=== PATIENT | female | born 1990 | race African-American/Black ===

== ENCOUNTER 2021-10-17 11:43 | Emergency (ER) | payer BC ==
--- OUTSIDE RECORDS SUMMARY | 2021-10-17 11:46 | XMS REPORT | Continuity of Care Document ---
:1990 Author Organization [facility] t Address [address] [place] [address] Dr. Erazo [address] [place] [address] Care Team Providers Name Role Phone JEET_KIRAN_Marks_LM Attending Clinician Unavailable AZAR Attending Clinician Unavailable Nile LAWRENCE Attending Clinician Unavailable KIRA LUJAN Attending Clinician Unavailable JEET_KIRAN_Lorena_LM Admitting Clinician Unavailable AZAR Admitting Clinician Unavailable Payers Payer Name Policy Type Policy Number Effective Date Expiration Date S our[place] [id number] 2021 00:00:00 [place] [id number] 2020 00:00:00 Problems This patient has no known problems. Allergies, Adverse Reactions, Alerts This patient has no known allergies or adverse reactions. Medications This patient has no known medications. Procedures This patient has no known procedures. Encounters Start End Encounter Admission Attending Care Care Encounter Source Date/Time Date/Time Type Type Clinicians Facility Department ID 2021-09-30 2021-09-30 Outpatient GC_[facility]_M PRIV PRIV [id number] [facility] 01:37:00 01:37:00 arks_CARLOS [id number] Medica l 2021-09-28 2021-09-28 Outpatient GC_[facility]_M PRIV PRIV [id number] [facility] 10:01:00 10:01:00 austenks_LM [id number] Medica l 2021-09-27 2021-09-27 Outpatient GC_[facility]CBAY_M PRIV PRIV [id number] [facility] 12:24:00 12:24:00 dwayne_CARLOS [id number] Medica l 2021-06-17 2021-06-17 Outpatient JOSHUA DASILVA D [id number] [facility] - 06:29:26 08:07:31 [place], [place] jim Lozoya 2021-05-11 2021-05-11 Outpatient GC_[facility]_M PRIV PRIV [id number] [facility] 02:23:00 02:23:00 austenks_CARLOS [id number] Medica l 2021-05-11 2021-05-11 Outpatient GC_[facility]_M PRIV PRIV [id number] [facility] 02:23:00 02:23:00 dwayne_CARLOS [id number] Medica l 2020-11-15 2020-11-15 Emergency MELINDA, TORRES [facility] [id number] [place] 21:53:00 23:25:00 Health 2020-11-15 2020-11-15 Emergency [facility] [id number] [place] 22:05:15 22:12:28 Health 2019-03-03 2019-03-03 Emergency E [facility] [id number] [facility] 17:40:00 17:40:00 Results Test Description Test Time Test Comments Results Result Comments Source WET PREP 2017-12-25 11:33:00 Test Item Value Reference Range Interpretation Comme nts WBC WET PREP (BEAKER) (test code = 528) Few white blood cells seen CLUE CELLS (BEAKER) (test code = 526) Moderate clue cells seen YEAST WET PREP (BEAKER) (test code = 530) No budding yeast seen TRICH WET PREP (BEAKER) (test code = 531) No Trichomonas seen BACT WET PREP (BEAKER) (test code = 532) Many bacteria seen URINALYSIS W/ [id number] 10:55:00 Test Item Value Reference Range Interpretation Comments COLOR (BEAKER) (test Yellow code = 470) CLARITY (BEAKER) (test Clear code = 469) SPECIFIC GRAVITY UA 1.025 1.001-1.035 (BEAKER) (test code = 468) PH UA (BEAKER) (test 5.0 5.0-8.0 code = 467) PROTEIN UA (BEAKER) Negative Negative (test code = 464) GLUCOSE UA (BEAKER) Negative Negative (test code = 365) KETONES UA (BEAKER) Negative Negative (test code = 371) BILIRUBIN UA (BEAKER) Negative Negative (test code = 462) BLOOD UA (BEAKER) (test Small Negative A code = 461) NITRITE UA (BEAKER) Negative Negative (test code = 465) LEUKOCYTE ESTERASE UA Trace Negative A (BEAKER) (test code = 466) UROBILINOGEN UA (BEAKER) 0.2 mg/dL 0.2-1.0 (test code = 463) BACTERIA (BEAKER) (test Moderate code = 517) RBC UA-MANUAL (BEAKER) 5-10 /HPF (test code = 1659) WBC UA-MANUAL (BEAKER) 5-10 /HPF (test code = 1661) SQUAMOUS EPITHELIAL 5-10 /HPF Clue colleen ls seen, MANUAL (BEAKER) (test rare. code = 1663) SOURCE(BEAKER) (test code = 2795) SCREEN, [id number] 10:50:00 Test Item Value Reference Range Interpretation Comments TEST URINE (BEAKER) (test Negative code = 583)
[2021-10-17] MEDS ORDERED: ACETAMINOPHEN 500 MG TAB ONE (11:54)
[2021-10-17 12:09] LABS: Absolute Lymphocytes (CBC) 0.6 K/uL (0.7-4.9); Hematocrit 38.2 % (36.0-45.0); MPV 10.7 fL (7.6-11.3); RBC Red Blood Cell Count 4.28 M/uL (3.86-4.86)
[2021-10-17] MEDS ORDERED: NA CHLORIDE 0.9% 2,000 ML ONE (12:15)
[2021-10-17] MEDS ORDERED: MORPHINE 4 MG/ML SYR ONE (12:17)
[2021-10-17] MEDS ORDERED: ONDANSETRON 4 MG/2 ML VIAL ONE (12:17)
[2021-10-17 12:20] LABS: Protime INR 1.12
[2021-10-17 12:31] LABS: Albumin 3.5 g/dL (3.4-5.0); Bilirubin Direct 0.1 mg/dL (0-0.2); Bilirubin Total 0.4 mg/dL (0.2-1.0); Magnesium 1.6 mg/dL (1.8-2.4); Potassium 3.5 mmol/L (3.5-5.1); Protein, Total 7.3 g/dL (6.4-8.2); Troponin High Sensitivity 7.6 pg/mL (<58.9)
[2021-10-17 13:10] LABS: Urine Blood 2+ (Negative); Urine Glucose Negative (Negative); Urine Protein Trace (Negative); Urine Specific Gravity >=1.030 (1.005-1.030)
[2021-10-17 13:25] LABS: Urine Specific Gravity/Preg >1.030 (1.005-1.030)
[2021-10-17 13:30] LABS: SARS-COV-2 RT PCR NEGATIVE (NEGATIVE)
[2021-10-17 13:33] LABS: Urine Bacteria 20-50 /HPF (<20); Urine Mucus 3+ /HPF (NONE SEEN); Urine RBC <5 /HPF (NONE SEEN)
--- NOTE | 2021-10-17 13:33 | RAD REPORT ---
EXAM DESCRIPTION: CT - Abdomen Pelvis W Contrast - 10/17/2021 1:22 pm CLINICAL HISTORY: Abdominal pain COMPARISON: none. TECHNIQUE: Computed axial tomography of the abdomen pelvis was obtained. 100 cc Isovue-300 was admin istered intravenously. Oral contrast was not requested which limits evaluation of bowel. All CT scans are performed using dose optimization technique as appropriate and may include automated exposure control or mA/KV adjustment according to patient size. FINDINGS: The liver, spleen, pancreas, adrenal and kidneys appear unremarkable. There is no evidence of diverticulitis. Normal appendix 2.6 centimeter left ovarian cyst with a small amount free fluid IMPRESSION: 2.6 centimeter left ovarian cyst with a small amount free fluid .
[2021-10-17 13:41] LABS: Blood Morphology Comment NOT SEEN (NOT SEEN); Platelet Estimate ADEQ; White Blood Cell Scan OK (OK)
[2021-10-17] MEDS ORDERED: MAGNESIUM SULFATE 1 gm IVPB 1 GM/100 ML BAG IV ONE (13:49)
[2021-10-17] MEDS ORDERED: CEFTRIAXONE 1000 MG/VIAL ONE (13:49)
--- NOTE | 2021-10-17 14:06 | RAD REPORT ---
EXAM DESCRIPTION: Katherin Single View10/17/2021 12:31 pm CLINICAL HISTORY: Fever COMPARISON: none FINDINGS: The lungs appear clear of acute infiltrate. The heart is normal size IMPRESSION: No acute abnormalities displayed
[2021-10-17] MEDS ORDERED: KETOROLAC 30 MG/ML INJ ONE (14:30)
--- NOTE | 2021-10-17 14:42 | ER ---
Nurse's Notes [facility] Name: Pretty Summers Age: 30 yrs Sex: Female : 1990 Arrival Date: 10/17/2021 Time: 11:44 Bed 3 Private MD: Diagnosis: UTI/ Urinary tract infection, site not specified;Other and unspecified ovarian cysts Presentation: 10/17 12:02 Chief complaint: EMS states: Toned out for lower abdominal pain since this morning, pt jl7 HR 120s, temp 103.1, 20 to L AC, LR running wide open. Coronavirus screen: Vaccine status: Patient reports being unvaccinated. fever, Client presents with at least one sign or symptom that may indicate coronavirus-19. Standard/surgical mask placed on the client. Provider contacted for isolation considerations. Ebola Screen: No symptoms or risks identified at this time. Initial Sepsis Screen: Does the patient meet any 2 criteria? Temp <36.0*C (96.8*F)) or > 38.3*C (100.9*F). HR > 90 bpm. Yes Does the patient have a suspected source of infection? Yes: Acute abdominal pain. Risk Assessment: Do you want to hurt yourself or someone else? Patient reports no desire to harm self or others. Onset of symptoms was October 17, 2021. Care prior to arrival: Medication(s) given: Lactated Ringers IV initiated. 20 GA, in the left antecubital area. 12:02 Method Of Arrival: EMS: [facility] jl7 12:02 Acuity: YEIMY 2 jl7 Triage Assessment: 11:45 General: Appears in no apparent distress. uncomfortable, ill, Behavior is calm, jl7 cooperative, appropriate for age, quiet. Pain: Complains of pain in right lower quadrant and left lower quadrant Pain currently is 10 out of 10 on a pain scale. Pain began 4 hours ago. Is continuous. Neuro: Level of Consciousness is awake, alert, obeys commands, Oriented to person, place, time, situation. Cardiovascular: Patient's skin is warm and dry. Respiratory: Airway is patent Respiratory effort is even, unlabored, Respiratory pattern is regular, symmetrical. GI: Reports lower abdominal pain, Patient currently denies nausea, vomiting. : Denies burning with urination. Derm: Skin is dry, Skin is normal, Skin temperature is hot. 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 Flu vaccine is not up to date. - Social history:: Smoking status: Patient denies any tobacco usage or history of. Screenin:09 Abuse screen: Denies threats or abuse. Denies injuries from another. Nutritional jl7 screening: No deficits noted. Tuberculosis screening: No symptoms or risk factors identified. Fall Risk IV access (20 points). Total Whelan Fall Scale indicates No Risk (0-24 pts). Assessment: 13:28 Reassessment: Patient appears in no apparent distress at this time. No changes from ww previously documented assessment. Patient and/or family updated on plan of care and expected duration. Pain level reassessed. Patient states symptoms have not improved. assisted to bedside toilet, UA obtained. Patient transported to CT scan. . Vital Signs: 12:02 BP 129 / 77; Pulse 116; Resp 17 S; Temp 103(O); Pulse Ox 99% on R/A; Weight 90.72 kg jl7 (R); Height 5 ft. 4 in. (162.56 cm); Pain 10/10; 12:15 BP 120 / 74; Pulse 113; Resp 18; Pulse Ox 99% ; Pain 10/10; jl7 13:55 BP 116 / 75; Pulse 108; Resp 13; Temp 99.2; Pulse Ox 96% ; jl7 12:02 Body Mass Index 34.33 (90.72 kg, 162.56 cm) jl7 ED Course: 11:44 Patient arrived in ED. ds1 11:44 Darion Infante PA is PHCP. cp 11:44 Darion Kamara MD is Attending Physician. cp 11:45 Arm band placed on right wrist. jl7 12:06 Triage completed. jl7 12:09 Patient has correct armband on for positive identification. Placed in gown. Bed in low jl7 position. Call light in reach. Side rails up X2. monitoring tech on. Pulse ox on. NIBP on. 12:09 Initial lab(s) drawn, by ED staff, sent to lab. First set of blood cultures drawn by jl7 lab staff. Second set of blood cultures drawn by lab staff. EKG done, by ED staff, reviewed by Darion BENAVIDES COVID swab sent to lab. Flu and/or RSV swab sent to lab. Maintain EMS IV. Dressing intact. Good blood return noted. Site clean \T\ dry. Gauge \T\ site: 20 Left AC. Inserted saline lock: 20 gauge in right antecubital area, using aseptic technique. forearm, using aseptic technique. Blood collected. 12:21 Ruslan Bautista, RN is Primary Nurse. jl7 12:31 XRAY Chest (1 view) In Process Unspecified. EDMS 13:16 CT Abd/Pelvis - IV Contrast Only In Process Unspecified. EDMS 14:08 Urine --Ancillary (enter results) Sent. ww 15:36 No provider procedures requiring assistance completed. IV discontinued, intact, jl7 bleeding controlled, No redness/swelling at site. Pressure dressing applied. Administered Medications: 11:52 Drug: Tylenol 1000 mg Route: PO; jl7 14:00 Follow up: Response: No adverse reaction; Temperature is decreased jl7 12:18 Drug: morphine 4 mg Route: IVP; Site: left antecubital; jl7 12:45 Follow up: Response: No adverse reaction; Pain is decreased jl7 12:18 Drug: Zofran (Ondansetron) 4 mg Route: IVP; Site: left antecubital; jl7 15:38 Follow up: Response: No adverse reaction jl 12:20 Drug: NS 0.9% (30 ml/kg) 30 ml/kg Route: IV; Rate: bolus; Site: right forearm; jl7 15:00 Follow up: Response: No adverse reaction; IV Status: Completed infusion; IV Intake: [facility] 2700ml 13:40 Drug: Rocephin - (cefTRIAXone) 1 grams Route: IVPB; Infused Over: 30 mins; Site: right ww forearm; 13:45 Follow up: Response: No adverse reaction; IV Status: Completed infusion jl7 13:54 Drug: Magnesium Sulfate 1 grams Route: IVPB; Infused Over: 1 hrs; Site: right forearm; 14:54 Follow up: Response: No adverse reaction; IV Status: Completed infusion jl7 14:35 Drug: Ketorolac 30 mg Route: IVP; Site: right antecubital; ww 15:00 Follow up: Response: No adverse reaction; Pain is decreased jl7 Point of Care Testing: Urine : 14:08 hCG Reading: Negative; Control Reading: Positive; ww Intake: 15:00 IV: 2700ml; Total: 2700ml. jl7 Outcome: 14:41 Discharge ordered by . kassie 15:36 Discharged to home ambulatory. jl7 15:36 Condition: stable 15:36 Discharge instructions given to patient, Instructed on discharge instructions, follow up and referral plans. medication usage, Demonstrated understanding of instructions, follow-up care, medications, Prescriptions given X 3. 15:37 Patient left the ED. jl7 Signatures: Dispatcher [employer] EDHI Silvia Rush ds1 Darion Infante PA PA cp Leal, Jahala, RN RN jl7 Amelia Cary RN RN courtney
--- NOTE | 2021-10-17 14:43 | EDPHYS ---
Physician Documentation [facility] Name: Pretty Summers Age: 30 yrs Sex: Female : 1990 Arrival Date: 10/17/2021 Time: 11:44 Bed 3 Private MD: ED Physician Darion Kamara HPI: 10/17 11:55 This 30 yrs old Female presents to ER via EMS with complaints of Abdominal Pain. cp 11:55 The patient presents with abdominal pain in the lower abdomen. cp 11:55 Onset: The symptoms/episode began/occurred this morning. Associated signs and symptoms: cp Pertinent positives: fever, Pertinent negatives: chest pain, constipation, diarrhea, vomiting. The symptoms are described as constant. 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 Flu vaccine is not up to date. - Social history:: Smoking status: Patient denies any tobacco usage or history of. ROS: 12:00 Constitutional: Positive for fever. cp 12:00 Abdomen/GI: Positive for abdominal pain. cp Exam: 12:05 ECG was reviewed by the Attending Physician. cp 12:07 Constitutional: The patient appears in no acute distress, alert, awake, non-toxic, well cp developed, well nourished. 12:07 Head/Face: Normocephalic, atraumatic. cp 12:07 Eyes: Periorbital structures: appear normal, Conjunctiva: normal, no exudate, no injection, Sclera: no appreciated abnormality, Lids and lashes: appear normal, bilaterally. 12:07 ENT: External ear(s): are unremarkable, Nose: is normal, Mouth: Lips: moist, Oral mucosa: moist, Posterior pharynx: Airway: no evidence of obstruction, patent. 12:07 Neck: ROM/movement: is normal, is supple, without pain, no range of motions limitations. 12:07 Chest/axilla: Inspection: normal. 12:07 Cardiovascular: Rate: tachycardic, Rhythm: regular. 12:07 Respiratory: the patient does not display signs of respiratory distress, Respirations: normal, no use of accessory muscles, no retractions, labored breathing, is not present, Breath sounds: are clear throughout, no decreased breath sounds, no stridor, no wheezing. 12:07 Abdomen/GI: Inspection: abdomen appears normal, Bowel sounds: active, all quadrants, Palpation: soft, in all quadrants, mild abdominal tenderness, in the suprapubic area and left lower quadrant, rebound tenderness, is not appreciated, involuntary guarding, is not appreciated. 12:07 Back: ROM is normal. 12:07 Neuro: Orientation: to person, place \\T\\ time. Mentation: is normal, Motor: moves all fours, strength is normal, Sensation: is normal. Vital Signs: 12:02 BP 129 / 77; Pulse 116; Resp 17 S; Temp 103(O); Pulse Ox 99% on R/A; Weight 90.72 kg jl7 (R); Height 5 ft. 4 in. (162.56 cm); Pain 10/10; 12:15 BP 120 / 74; Pulse 113; Resp 18; Pulse Ox 99% ; Pain 10/10; jl7 13:55 BP 116 / 75; Pulse 108; Resp 13; Temp 99.2; Pulse Ox 96% ; jl7 12:02 Body Mass Index 34.33 (90.72 kg, 162.56 cm) jl7 MDM: 11:51 Patient medically screened. [facility] 14:40 Data reviewed: vital signs, nurses notes, lab test result(s), EKG, radiologic studies, cp CT scan, plain films. 14:40 Test interpretation: by ED physician or midlevel provider: ECG, plain radiologic cp studies. Counseling: I had a detailed discussion with the patient and/or guardian regarding: the historical points, exam findings, and any diagnostic results supporting the discharge/admit diagnosis, lab results, radiology results, to return to the emergency department if symptoms worsen or persist or if there are any questions or concerns that arise at home. Response to treatment: the patient's symptoms have markedly improved after treatment, and as a result, I will discharge patient. 10/17 11:52 Order name: Basic Metabolic Panel; Complete Time: 12:35 cp 10/17 12:35 Interpretation: Normal except: GFR 75. cp 10/17 11:52 Order name: CBC with Diff; Complete Time: 14:10 cp 10/17 14:10 Interpretation: Normal except: LYM% 7.0; LYMA 0.6; JULIANA% 87.5. cp 10/17 11:52 Order name: LFT's; Complete Time: 12:35 cp 10/17 13:14 Interpretation: Normal except: AST 14; GLOB 3.8; A/G 0.9. cp 10/17 11:52 Order name: Magnesium; Complete Time: 12:35 cp 10/17 13:15 Interpretation: Abnormal: MG 1.6. cp 10/17 11:52 Order name: PT-INR; Complete Time: 12:35 cp 10/17 11:52 Order name: Troponin HS; Complete Time: 12:35 cp 10/17 11:52 Order name: Urine Microscopic Only; Complete Time: 14:10 cp 10/17 14:10 Interpretation: Normal except: UWBC 10-20; UBACT 20-50; MUCUS 3+. cp 10/17 11:52 Order name: Procalcitonin; Complete Time: 13:14 cp 10/17 11:52 Order name: Lactate; Complete Time: 12:35 cp 10/17 11:52 Order name: Blood Culture Adult (2) cp 10/17 11:52 Order name: COVID-19/FLU A+B (Document "Date of Onset" if Symptomatic); Complete Time: cp 14:10 10/17 14:11 Interpretation: Reviewed. cp 10/17 12:12 Order name: Glucose, Ancillary Testing; Complete Time: 12:35 EDMS 10/17 13:10 Order name: Urine Dipstick-Ancillary; Complete Time: 13:14 EDMS 10/17 13:14 Interpretation: Normal except: UKET Trace; UBLD 2+; UPROT Trace; U NIT Positive; UESTR cp 1+. 10/17 13:12 Order name: Urine --Ancillary (enter results) bd 10/17 11:52 Order name: XRAY Chest (1 view); Complete Time: 14:10 cp 10/17 14:11 Interpretation: Report reviewed. cp 10/17 11:52 Order name: EKG; Complete Time: 11:52 cp 10/17 11:52 Order name: Cardiac monitoring; Complete Time: 12:01 cp 10/17 11:52 Order name: EKG - Nurse/Tech; Complete Time: 12:01 cp 10/17 11:52 Order name: IV Saline Lock; Complete Time: 12:01 10/17 12:36 Order name: CT Abd/Pelvis - IV Contrast Only; Complete Time: 14:10 10/17 14:11 Interpretation: Report reviewed. 10/17 13:12 Order name: Urine --Ancillary; Complete Time: 14:10 [facility] 10/17 14:10 Interpretation: Reviewed. 10/17 13:34 Order name: Urine Culture [facility] 10/17 13:42 Order name: CBC Smear Scan; Complete Time: 14:10 [facility] 10/17 11:52 Order name: Labs collected and sent; Complete Time: 12:01 10/17 11:52 Order name: O2 Per Protocol; Complete Time: 12: 10/17 11:52 Order name: O2 Sat Monitoring; Complete Time: 12: 10/17 11:52 Order name: Urine Dipstick-Ancillary (obtain specimen); Complete Time: 13:13 10/17 11:52 Order name: Urine Test (obtain specimen); Complete Time: 13:13 10/17 14:12 Order name: PO challenge; Complete Time: 14:25 cp EC:05 Rate is 121 beats/min. Rhythm is regular. LA interval is normal. QRS interval is cp normal. T waves are Inverted in leads III, aVR. Interpreted by me. Reviewed by me. Administered Medications: 11:52 Drug: Tylenol 1000 mg Route: PO; jl7 14:00 Follow up: Response: No adverse reaction; Temperature is decreased jl7 12:18 Drug: morphine 4 mg Route: IVP; Site: left antecubital; jl7 12:45 Follow up: Response: No adverse reaction; Pain is decreased jl7 12:18 Drug: Zofran (Ondansetron) 4 mg Route: IVP; Site: left antecubital; jl7 15:38 Follow up: Response: No adverse reaction jl7 12:20 Drug: NS 0.9% (30 ml/kg) 30 ml/kg Route: IV; Rate: bolus; Site: right forearm; jl7 15:00 Follow up: Response: No adverse reaction; IV Status: Completed infusion; IV Intake: jl7 2700ml 13:40 Drug: Rocephin - (cefTRIAXone) 1 grams Route: IVPB; Infused Over: 30 mins; Site: right ww forearm; 13:45 Follow up: Response: No adverse reaction; IV Status: Completed infusion jl7 13:54 Drug: Magnesium Sulfate 1 grams Route: IVPB; Infused Over: 1 hrs; Site: right forearm; ww 14:54 Follow up: Response: No adverse reaction; IV Status: Completed infusion jl7 14:35 Drug: Ketorolac 30 mg Route: IVP; Site: right antecubital; ww 15:00 Follow up: Response: No adverse reaction; Pain is decreased [facility] Point of Care Testing: Urine : 14:08 hCG Reading: Negative; Control Reading: Positive; ww Disposition Summary: 10/17/21 14:41 Discharge Ordered Location: Home cp Problem: new cp Symptoms: have improved cp Condition: Stable cp Diagnosis - UTI/ Urinary tract infection, site not specified cp - Other and unspecified ovarian cysts cp Followup: cp - With: Private Physician - When: 1 week - Reason: Recheck today's complaints Discharge Instructions: - Discharge Summary Sheet cp - Ovarian Cyst cp - Urinary Tract Infection, Adult cp Forms: - Medication Reconciliation Form cp - Thank You Letter cp - Antibiotic Education cp - Prescription Opioid Use cp Prescriptions: - Zofran 4 mg Oral Tablet - take 1 tablet by ORAL route every 12 hours As needed; 20 tablet; Refills: 0, cp Product Selection Permitted - Naprosyn 500 mg Oral Tablet - take 1 tablet by ORAL route 2 times per day take with food; 20 tablet; Refills: cp 0, Product Selection Permitted - Bactrim DS 800-160 mg Oral Tablet - take 1 tablet by ORAL route every 12 hours for 7 days; 14 tablet; Refills: 0, cp Product Selection Permitted Signatures: Dispatcher [employer] Darion Cronin MD MD cha Page, Corey, PA PA cp Ruslan Bautista RN RN jl7 Amelia Cary RN RN ww Corrections: (The following items were deleted from the chart) 12:36 12:35 Normal except. cp cp 14:10 12:36 Normal except: LYM% 7.0; LYMA 0.6. cp cp
[2021-10-17 16:35] VITALS: BP 116/75; TEMP 99.2; O2SAT 96
--- NOTE | 2021-10-18 07:25 | EKG ---
Test Date: 2021-10-17 Test Time: 12:01:08 Blood Bank Order Control Clerk: BARBARA MEASUREMENT RESULTS: Intervals: Rate: 121 ID: [id number] QRSD: 76 QT: 312 QTc: 443 [place]: P: 56 ID: [id number] QRS: 40 T: 29 INTERPRETIVE STATEMENTS: Sinus tachycardia Otherwise normal ECG No previous ECG available for comparison Electronically Signed On 10-18-21 07:22:43 SHAPER OPERATOR by Dago Sanchez
== END 2021-10-17 15:37 | disposition home or self-care (01) ==
LOC: ER 11:43
DX: N39.0 Urinary tract infection, site not specified (principal); N83.299 Other ovarian cyst, unspecified side; Z20.822 Contact with and (suspected) exposure to COVID-19
CPT/HCPCS: 93005; 87040 ×2; 87088; 85025; 87086; 80048; 36415; 83735; 81025; 85610; 82947; 80076; 83605; 87077; 87186; 84484; 84145; 0240U; 74177; 71045; 99285; Q9967; J3475; J7030; J2405; 81003; 81015